=== PATIENT | female | born 1945 | race Caucasian/White ===

== ENCOUNTER 2016-04-13 08:53 | Day surgery (SDC) | payer MEDICARE, OTHER ==
[2016-04-13] VITALS (7 sets, daily range): BP systolic 105–157; BP diastolic 67–96; PULSE 90–116; RESP 18–20; TEMP 97.6–98.3; O2SAT 90–97
[~2016-04-13] VITALS: Ht 160 cm; Wt 49.1 kg
[~2016-04-13 08:53] MED LIST: ACET325T11 PO; ASPI81TA82 PO; CEPH500 PO; COQ150CA PO; CRAN1000 PO; DICY10 PO; DIPH25CA PO; FLEX10TA PO; LEVA750T PO; LYRI75CA PO; MAGN500T4 PO; MIRA33502 PO; MISCLIQ PO; NEUR300C PO; OLIV250C PO; OXYC20 PO; PAME10CA PO; PERC10TA27 PO; PYRI200T4 PO; RANI150T PO; SIMV40 PO; TIGA300C2 PO; VITA200017 PO; VITA500C PO; XANA0.5T PO; ZOLP10TA3 PO; [UNRECOGNIZED DRUG - CODE] PO
[2016-04-13] MEDS ORDERED: CRANCAP2 PO (09:53)
[2016-04-13] MEDS ORDERED: PYRI200T4 PO (09:53)
[2016-04-13] MEDS ORDERED: TYLE325T PO (09:53)
[2016-04-13] MEDS ORDERED: ASPI1TAB69 PO (09:53)
[2016-04-13] MEDS ORDERED: CHOL20005 PO (09:53)
[2016-04-13] MEDS ORDERED: DIPH25CA PO (09:53)
[2016-04-13] MEDS ORDERED: MIRA33504 PO (09:53)
[2016-04-13] MEDS ORDERED: TIGA300C2 PO (09:53)
[2016-04-13] MEDS ORDERED: PERC10TA27 PO (09:53)
[2016-04-13] MEDS ORDERED: ZOCO10TA PO (09:53)
[2016-04-13] MEDS ORDERED: [UNRECOGNIZED DRUG - OTHER] (09:53)
[2016-04-13] MEDS ORDERED: GABA600T PO (09:53)
[2016-04-13] MEDS ORDERED: CYCL1TAB29 PO (09:53)
[2016-04-13] MEDS ORDERED: PAME10CA PO (09:53)
[2016-04-13] MEDS ORDERED: DICY10 PO (09:53)
[2016-04-13] MEDS ORDERED: SODIUM CHLOR 0.9% 1000 ML IV SCH (10:00)
[2016-04-13] MEDS ORDERED: LIDOCAINE 1%/EPINEPHrine 1:100,000 SOLN 20 ML VIAL ONE (10:40)
[2016-04-13] MEDS ORDERED: fentaNYL CITRATE 250 MCG/5 ML AMP ONE (10:58)
[2016-04-13] MEDS ORDERED: MIDAZOLAM HCL 5 MG/5 ML VIAL ONE (10:58)
[2016-04-13] MEDS ORDERED: THROMBIN (TOPICAL) 5,000 UNIT VIAL ONE (11:41)
[2016-04-13] MEDS ORDERED: HYDROmorphone HCL PF 2 MG/ML VIAL ONE (11:57)
[2016-04-13] MEDS ORDERED: oxyCODONE/ACETAMINOPHEN 10 MG/325 MG TAB PO PRN (13:00)
[2016-04-13] MEDS ORDERED: GELATIN 12 MM/7 MM FOAM ONE (13:12)
--- NOTE | 2016-04-13 13:39 | RADRPT ---
EXAM DATE/TIME: 04/13/2016 11:30 [facility] COMPARISON: No previous studies available for comparison. INDICATIONS : Liver lesion. History of breast cancer. SEDATION TIME: 30 minutes BIOPSY SITE: Right Liver MEDICATION(S): 1.) 5 mg midazolam (Versed) IV 2.) 1 mg hydromorphone (Dilaudid) IV 3.) 250 mcg fentanyl (Sublimaze) IV DEVICE(S): 1.) 18 gauge Cedeño blunt needle 2.) 20 gauge Temno core biopsy needle MEDICAL HISTORY : Breast cancer. SURGICAL HISTORY : Hysterectomy. Tonsillectomy. Appendectomy. Right Lumpectomy. Lumbar kyphoplasty. ENCOUNTER: Initial ACUITY: 1 day PAIN SCORE: 0/10 LOCATION: Right A total of three core specimen(s) were obtained and sent to the laboratory for pathologic evaluation. PROCEDURE: 1. CT guided liver biopsy. 2. Conscious sedation with continuous EKG and oximetry monitoring. 3. EKG and oximetry remained stable throughout the procedure. Prior to the procedure informed consent was obtained. Any appropriate prior imaging studies were rev iewed. The site was prepped in a sterile fashion. Full sterile technique was used, including cap, mask, nj rile gloves and gown and a large sterile sheet. Hand hygiene and 2% chlorhexidine and/or betadine/al cohol prep was utilized per protocol for cutaneous antisepsis. The skin and subcutaneous tissues wer e infiltrated with local anesthetic solution. With CT guidance the previously identified target was localized. Biopsy was performed using the presc ribed needle as above. Adequate hemostasis was obtained with compression at the puncture site. Follow-up CT scan reveals no hemorrhage. The patient tolerated the procedure well and there were no complications. The patient was returned to the Radiology Outpatient Unit in stable condition. CONCLUSION: Uncomplicated CT guided biopsy. Tract was embolized with Gelfoam and thrombin. Martinez Lara MD FACR on April 13, 2016 at 13:36 Board Certified Radiologist. This report was verified electronically.
--- NOTE | 2016-04-13 13:43 | RADRPT ---
EXAM DATE/TIME: 04/13/2016 12:39 [facility] COMPARISON: CT NEEDLE BIOPSY LIVER, April 13, 2016, 11:30. INDICATIONS : Post liver biopsy. MEDICAL HISTORY : Hypercholesterolemia. Irritable bowel syndrome. Carcinoma, breast. SURGICAL HISTORY : Tonsillectomy. Appendectomy. Hysterectomy. Cardiac stent. Neck & back surgeries. ENCOUNTER: Subsequent ACUITY: 1 day PAIN SCORE: 0/10 LOCATION: chest FINDINGS: A single frontal expiratory view of the chest was performed. The lungs are symmetrically aerated and clear. No evidence of pneumothorax. Mediastinal structures are in the midline. The cardio-mediastinal contours and bronchopulmonary markings are unremarkable for an expiratory exam . Osseous structures are intact. CONCLUSION: Normal examination. Barry Bahena Jr., MD on April 13, 2016 at 13:36 Board Certified Radiologist. This report was verified electronically.
== END 2016-04-13 15:40 | disposition home or self-care (01) ==
LOC: HRAD 08:53 → HRIP 08:57 → EDSTATUS 09:00 → HRAD 15:40
PROVIDERS: ATTEND Internal Medicine Hematology & Oncology
DX: K76.9 Liver disease, unspecified (principal); K58.9 Irritable bowel syndrome, unspecified; E78.00 Pure hypercholesterolemia, unspecified; Z85.3 Personal history of malignant neoplasm of breast
CPT/HCPCS: 47000; 71010; 77012; 88307; 88333; J1170; J2250; J3010; J7030

== ENCOUNTER 2016-04-27 09:02 | Day surgery (SDC) | payer MEDICARE, OTHER ==
[~2016-04-27] VITALS: Ht 160 cm; Wt 50.0 kg
[2016-04-27] VITALS (8 sets, daily range): BP systolic 118–156; BP diastolic 58–97; PULSE 89–98; RESP 18–20; TEMP 97.6–98.1; O2SAT 94–99
[~2016-04-27 09:02] MED LIST changes: +ASPI1TAB69 PO; -CEPH500 PO; +CHOL20005 PO; -COQ150CA PO; +CRANCAP2 PO; +CYCL1TAB29 PO; +GABA600T PO; -LEVA750T PO; -LYRI75CA PO; -MAGN500T4 PO; +MIRA33504 PO; -OLIV250C PO; -OXYC20 PO; -RANI150T PO; +TYLE325T PO; -VITA500C PO; -XANA0.5T PO; +ZOCO10TA PO; -ZOLP10TA3 PO; -[UNRECOGNIZED DRUG - CODE] PO; +[UNRECOGNIZED DRUG - OTHER]
[2016-04-27] MEDS ORDERED: SODIUM CHLOR 0.9% 1000 ML INJ 1,000 ML IV SCH (09:30)
[2016-04-27] MEDS ORDERED: LORA-392 PO (09:32)
[2016-04-27] MEDS ORDERED: PRESCAP5 PO (09:32)
[2016-04-27] MEDS ORDERED: EXEM25TA (09:32)
[2016-04-27] MEDS ORDERED: DENO60P SQ (09:32)
[2016-04-27] MEDS ORDERED: CRAN500C2 (09:32)
[2016-04-27] MEDS ORDERED: LIPO-FLAVONOID (09:32)
[2016-04-27] MEDS ORDERED: DOXE25CA2 PO (09:32)
[2016-04-27 10:04] LABS: BASOPHIL % 0.5 % (0.0-2.0); EOSINOPHIL # 0.1 TH/MM3 (0-0.4); EOSINOPHIL % 1.7 % (0.0-4.0); HEMATOCRIT 41.5 % (35.0-46.0); HEMO FLAGS DIFF FINAL; LYMPH % 24.5 % (9.0-44.0); LYMPHOCYTE # 1.2 TH/MM3 (1.0-4.8); MEAN CELL VOLUME 103.1 FL (80.0-100.0); MEAN CORPUSCULAR HEMOGLOBIN 35.5 PG (27.0-34.0); MEAN CORPUSCULAR HGB CONC 34.4 % (32.0-36.0); MONO % 13.4 % (0.0-8.0); NEUT % 59.9 % (16.0-70.0); PLATELET COUNT 159 TH/MM3 (150-450); RED BLOOD COUNT 4.02 MIL/MM3 (4.00-5.30)
[2016-04-27] MEDS ORDERED: LIDOCAINE 1%/EPINEPHrine 1:100,000 SOLN 20 ML VIAL ONE ×2 (10:11→12:03)
[2016-04-27 10:13] LABS: APTT (PATIENT) 28.8 SEC (24.3-30.1); PROTHROMBIN TIME - PATIENT 10.7 SEC (9.8-11.6)
[2016-04-27] MEDS ORDERED: MIDAZOLAM HCL 5 MG/5 ML VIAL ONE ×2 (10:31→11:01)
[2016-04-27] MEDS ORDERED: fentaNYL CITRATE 250 MCG/5 ML AMP ONE ×2 (10:31→11:01)
[2016-04-27] MEDS ORDERED: THROMBIN (TOPICAL) 5,000 UNIT VIAL ONE ×3 (10:40→12:39)
[2016-04-27] MEDS ORDERED: BUPIVACAINE HCL PF 0.75% 10 ML VIAL ONE ×2 (11:04→12:54)
--- NOTE | 2016-04-27 13:56 | RADRPT ---
EXAM DATE/TIME: 04/27/2016 10:31 [facility] COMPARISON: No previous studies available for comparison. EXTERNAL COMPARISON: [facility], PET/CT - TUMOR METABOLISM, March 29, 2016 INDICATIONS: Left liver lobe lesion seen on CT. MEDICAL HISTORY: Carcinoma, breast. Osteoporosis. Hypercholesterolemia. Carcinoma, uterine. Macular degeneration. Seiz ures. UTIs. IBS. Anxiety. Depression. K-Pneumoniae ESBL urine. SURGICAL HISTORY: Tonsillectomy. Hysterectomy. Appendectomy. Right carotid artery stent. Urethral stretch. Orthopedic s urgery, neck and back. Liver biopsy. Radiation therapy. ENCOUNTER: Initial ACUITY: 1 month PAIN SCORE: 0/10 LOCATION: Right upper quadrant AREA EVALUATED: Left liver lobe. FINDINGS/ CONCLUSION: Ultrasound was used in an attempt to localize presumed metastatic disease in the left lobe of the michael er. I was unsuccessful obtaining a window with ultrasound. Martinez Lara MD FACR on April 27, 2016 at 13:28 Board Certified Radiologist. This report was verified electronically.
--- NOTE | 2016-04-27 15:53 | RADRPT ---
EXAM DATE/TIME: 04/27/2016 12:37 [facility] COMPARISON: CT NEEDLE BIOPSY LIVER, April 13, 2016, 11:30. INDICATIONS : Liver mass. SEDATION TIME: 60 minutes BIOPSY SITE: Liver. MEDICATION(S): 1.) 8 mg midazolam (Versed) IV 2.) 350 mcg fentanyl (Sublimaze) IV DEVICE(S): 1.) 18 gauge Cedeño blunt needle 2.) 20 gauge Chiba needle 3.) 20 gauge Temno Core biopsy needle MEDICAL HISTORY : Carcinoma, breast. Cardiovascular disease. SURGICAL HISTORY : Appendectomy. Hysterectomy. Coronary artery stent. ENCOUNTER: Initial ACUITY: 1 day PAIN SCORE: 0/10 LOCATION: Right upper quadrant A total of two core specimen(s) were obtained and sent to the laboratory for pathologic evaluation. PROCEDURE: 1. CT guided liver biopsy. 2. Conscious sedation with continuous EKG and oximetry monitoring. 3. EKG and oximetry remained stable throughout the procedure. Prior to the procedure informed consent was obtained. Any appropriate prior imaging studies were rev iewed. The site was prepped in a sterile fashion. Full sterile technique was used, including cap, mask, nj rile gloves and gown and a large sterile sheet. Hand hygiene and 2% chlorhexidine and/or betadine/al cohol prep was utilized per protocol for cutaneous antisepsis. The skin and subcutaneous tissues wer e infiltrated with local anesthetic solution. Initial attempt was made with conscious sedation. Thi s was occluded with sedation provided by anesthesia. Using accommodation of ultrasound and CT an 18 gauge blunt needle was placed down to the lesion and 3 aspirates with 2 cores were obtained. Tract was embolized with Gelfoam and thrombin. Follow-up CT scan reveals no hemorrhage. The patient tolerated the procedure well and there were no complications. The patient was returned to the Radiology Outpatient Unit in stable condition. CONCLUSION: Uncomplicated CT guided biopsy of the PET positive lesion left lobe of the liver. Pr eliminary pathology interpretation is a cellular specimen. Martinez Lara MD FACR on April 27, 2016 at 15:46 Board Certified Radiologist. This report was verified electronically.
[2016-04-27] MEDS ORDERED: GELATIN 12 MM/7 MM FOAM ONE (15:57)
== END 2016-04-27 17:21 | disposition home or self-care (01) ==
LOC: HRAD 09:02 → HRIP 09:03 → HRAD 17:21
PROVIDERS: ATTEND Internal Medicine Hematology & Oncology
DX: C78.7 Secondary malignant neoplasm of liver and intrahepatic bile duct (principal); I25.10 Atherosclerotic heart disease of native coronary artery without angina pectoris; C50.919 Malignant neoplasm of unspecified site of unspecified female breast
CPT/HCPCS: 47000; 76705; 77012; 85025; 85610; 85730; 88307; 88333; 88341; 88342; J2250; J3010; J7030